=== PATIENT | male | born 1965 | race Caucasian/White ===

== ENCOUNTER 2021-06-15 09:59 | Day surgery (SDC) | payer OTHER ==
[~2021-06-15] VITALS: Ht 170.2 cm; Wt 83.9 kg
[2021-06-15] MEDS ORDERED: MIDAZOLAM 5 MG/5 ML VIAL ONE (12:00)
[2021-06-15] MEDS ORDERED: MIDAZOLAM 2 MG/2 ML VIAL IVP ONE (12:20)
== END 2021-06-15 12:50 | disposition home or self-care (01) ==
LOC: MDS 09:59 → MMU 09:59 → MDS 12:50
PROVIDERS: ATTEND Internal Medicine Gastroenterology
DX: R09.3 Abnormal sputum (principal); K59.00 Constipation, unspecified; K20.90 Esophagitis, unspecified without bleeding; E78.5 Hyperlipidemia, unspecified; E11.9 Type 2 diabetes mellitus without complications; Z95.5 Presence of coronary angioplasty implant and graft; Z88.0 Allergy status to penicillin; Z79.01 Long term (current) use of anticoagulants; Z79.84 Long term (current) use of oral hypoglycemic drugs; Z79.899 Other long term (current) drug therapy
CPT/HCPCS: 43235; J2250